=== PATIENT | female | born 1980 | race Caucasian/White ===

== ENCOUNTER 2017-01-06 08:52 | Outpatient (CLI) | payer MEDICAID ==
[2017-01-06 09:42] LABS: APPEARANCE,URINE SLIGHTLY-CLOUDY; BILIRUBIN,URINE NEGATIVE (NEGATIVE); GLUCOSE, URINE NEGATIVE (NEGATIVE); KETONES,URINE NEGATIVE (NEGATIVE); LEUKOCYTE ESTERASE,URINE SMALL (NEGATIVE); NITRITE,URINE NEGATIVE (NEGATIVE); PROTEIN,URINE NEGATIVE (NEGATIVE); URINE SPECIFIC GRAVITY 1.014
[2017-01-06 09:53] LABS: URINE BARBITURATES SCREEN NEGATIVE; URINE METHADONE SCREEN NEGATIVE; URINE OPIATES LOW NEGATIVE; URINE PHENCYCLIDINE SCREEN NEGATIVE
--- NOTE | 2017-01-06 10:46 | RADIOLOGY REPORT (SQ) ---
EXAM DESCRIPTION: U/S PROFILE W/O STRESS COMPLETED DATE/TIME: 01/06/2017 10:24 am REASON FOR STUDY: DECREASED MOVEMENT @ 29+6 WEEKS COMPARISON: None. TECHNIQUE: Limited lira-scale realtime and static images of the fetus to measure specified parameter s. LIMITATIONS: None. FINDINGS: HEART RATE: 143 beats per minute. RASHEED: 12.7 cm. BREATHING MOVEMENT: 2 points. MOVEMENT: 2 points. POSTURE AND TONE: 2 points. QUALITATIVE RASHEED: 2 points. OTHER: No other significant finding. IMPRESSION: BIOPHYSICAL PROFILE: 09/20. Trimester of : Third - 28 weeks to delivery COMMENT: BREATHING MOVEMENTS: 2 POINTS: PRESENT 0 POINTS: ABSENT MOTION: 2 POINTS: PRESENT 0 POINTS: ABSENT TONE: 2 POINTS: PRESENT 0 POINTS: ABSENT AMNIOTIC FLUID VOLUME: 2 POINTS: LARGEST POCKET GREATER THAN 2 CM DEPTH. 0 POINTS: NO POCKET OF 2 CM. TECHNICAL DOCUMENTATION: JOB ID: [id number] [employer] All Rights Reserved
== END 2017-01-06 12:39 | disposition home or self-care (01) ==
LOC: LC 08:52
PROVIDERS: ATTEND Obstetrics & Gynecology
PROC: 4A1HXCZ Monitoring of Products of Conception, Cardiac Rate, External Approach (ICD-10-PCS; principal; 2017-01-06)
DX: O36.8130 Decreased fetal movements, third trimester, not applicable or unspecified (principal); Z3A.29 29 weeks gestation of pregnancy
CPT/HCPCS: 76819; 80307; 81001

== ENCOUNTER 2017-01-06 12:59 | Emergency (ER) | payer MEDICAID ==
[2017-01-06] MEDS ORDERED: PSEUDOEPHEDRINE HCL 30 MG TABLET PO ONE (13:59)
[2017-01-06] MEDS ORDERED: ACETAMINOPHEN 325 MG TABLET PO ONE (13:59)
[2017-01-06] MEDS ORDERED: ALBUTEROL SULFATE 0.083% NEB 2.5 MG/3 ML AMPUL NEB ONE (13:59)
--- NOTE | 2017-01-06 13:59 | ER Document Report ---
HPI - HPI Pain Level: Denies Context: Patient is a 36-year-old female who is 30 weeks who presents after a labor check upstairs complaining of upper respiratory symptoms as well as bilateral conjunctivitis. She states she feels tired with nasal congestion dry cough and yellow drainage from her eyes since monday. states she has felt warm at home but denies any fevers, chills, urinary frequency, pyuria, vaginal pain, abdominal pain Follows with [facility] in [place] for [facility]ING[facility] - CONSTITUTIONAL Constitutional: REPORTS: Chills. DENIES: Fever - EENT EENT: REPORTS: Sore Throat - 1 week, Ear Pain - 1 week, Eye problems - "green drainage" today - NEURO Neurology: REPORTS: Headache. DENIES: Weakness, Vision blurred, Dizzinesss / Vertigo - CARDIOVASCULAR Cardiovascular: DENIES: Chest pain - RESPIRATORY Respiratory: REPORTS: Coughing. DENIES: Trouble Breathing - GASTROINTESTINAL Gastrointestinal: REPORTS: Abdominal Pain - with cough only. DENIES: Black / Bloody Stools - URINARY Urinary: DENIES: Dysuria, Urgency, Frequency - REPRODUCTIVE Reproductive: REPORTS: : - MUSCULOSKELETAL Musculoskeletal: DENIES: Extremity pain Past Medical History - Social History Smoking Status: Never Smoker Chew tobacco use (# tins/day): No Frequency of alcohol use: None Drug Abuse: None Family History: Reviewed & Not Pertinent Patient has suicidal ideation: No Patient has homicidal ideation: No Renal/ Medical History: Denies: Hx Peritoneal Dialysis Musculoskeltal Medical History: Reports Hx Arthritis Past Surgical History: Reports: Hx Oral Surgery - wisdom teeth, Hx Tonsillectomy - and adenoids Vertical Provider Document - CONSTITUTIONAL Agree With Documented VS: Yes Notes: PHYSICAL EXAM GENERAL: Alert, interacts well. HEAD: Normocephalic, atraumatic. EYES: Pupils equal, round, and reactive to light. Extraocular movements intact. HEENT: NCAT, pale conjunctiva, extraocular movements intact, pupils PERRL. external ear normal, no evidence of external auditory canal tenderness, blood/ drainage, cerumen impaction, TM intact without evidence of effusion, bulging, injection, MMM NECK: Full range of motion. Supple. Trachea midline. LUNGS: Wheezes noted at the bases otherwise no evidence of GENERAL: appears well , alert, attentiveness normal, consolable, good eye contact, NAD HEART: Regular rate and rhythm. No murmurs, gallops, or rubs. ABDOMEN: Soft, obese, gravid female nondistended, nontender. No guarding, rebound, or rigidity.. Bowel sounds present in all 4 quadrants. EXTREMITIES: Moves all 4 extremities spontaneously. No edema, radial and dorsalis pedis pulses 2/4 bilaterally. No cyanosis. NEUROLOGICAL: Alert and oriented x4. Normal speech. PSYCH: Normal affect, normal mood. SKIN: Warm, dry, normal turgor. No rashes or lesions noted. - INFECTION CONTROL TRAVEL OUTSIDE OF THE [place] IN LAST 30 DAYS: No - RESPIRATORY O2 Sat by Pulse Oximetry: 99 Course - Re-evaluation Re-evalutation: 01/06/17 14:46 Patient is a 36-year-old female who is hemodynamically stable, no acute distress and afebrile. Patient at this time is just requesting medication declining any x-ray or further workup. Discussed with her that we can medicate her here and otherwise to follow-up with her [facility] on Monday for repeat exam. Patient agrees with this plan. Patient clinically improved after one albuterol treatment. Will discharge home with [id number] medication C for and albuterol inhaler to take as needed. Otherwise patient is stable for discharge home. - Vital Signs Vital signs: Temp Pulse Resp BP Pulse Ox 98.2 F 100 20 137/91 H 99 01/06/17 13:24 01/06/17 13:24 01/06/17 13:24 01/06/17 13:24 01/06/17 13:24 Discharge - Discharge Clinical Impression: Conjunctivitis, Cough Condition: Good Disposition: HOME, SELF-CARE Instructions: Decongestant Medication ([facility]), Inhaled Bronchodilators ([facility]), Upper Respiratory Illness ([facility]) Additional Instructions: Please take your medication as directed otherwise please follow-up with your OB/ [facility] on Monday for follow-up examination. Otherwise please return to the emergency department with any worsening shortness of breath, cough, difficulty breathing, fever. Prescriptions: Albuterol Sulfate [Proair HFA Inhalation Aerosol 8.5 gm MDI] 2 puff IH Q4H PRN # 1 mdi PRN Reason: Polymyxin B Sulf/Trimethoprim [Polytrim Eye Drops] 1 drop OD Q3H #10 ml Referrals: CARIDAD KENNY MD [Primary Care Provider] - Follow up as needed
[2017-01-06 15:18] VITALS: BP 112/69
== END 2017-01-06 15:18 | disposition home or self-care (01) ==
LOC: ER 12:59
DX: H10.9 Unspecified conjunctivitis (principal); R05 Cough; R09.81 Nasal congestion; Z3A.30 30 weeks gestation of pregnancy
CPT/HCPCS: 94640; 99283; J3490